=== PATIENT | female | born 1980 | race Asian ===

== ENCOUNTER 2017-01-02 22:15 | Observation (INO) | payer OTHER ==
[~2017-01-02] VITALS: Ht 157.5 cm; Wt 70.8 kg
[2017-01-02 22:25] VITALS: BP 96/69
[2017-01-03] MEDS ORDERED: PREN1TAB80 PO (01:40)
== END 2017-01-03 01:10 | disposition home or self-care (01) ==
LOC: 4S 22:15
PROVIDERS: ADMIT Obstetrics & Gynecology; ATTEND Obstetrics & Gynecology
DX: O62.9 Abnormality of forces of labor, unspecified (principal); Z3A.38 38 weeks gestation of pregnancy
CPT/HCPCS: 59025; G0378 ×2